=== PATIENT | male | born 1990 | race Caucasian/White ===

== ENCOUNTER 2017-08-23 21:13 | Emergency (ER) | payer OTHER ==
[~2017-08-23] VITALS: Ht 193 cm; Wt 106.8 kg
[2017-08-23] MEDS ORDERED: IBUPROFEN 800 MG TABLET PO ONE (23:00)
[2017-08-23 23:04] VITALS: BP 141/87
== END 2017-08-23 23:08 | disposition home or self-care (01) ==
LOC: EMS 21:15
DX: J34.89 Other specified disorders of nose and nasal sinuses (principal); R03.0 Elevated blood-pressure reading, without diagnosis of hypertension
CPT/HCPCS: 70160; 99284